=== PATIENT | female | born 1960 | race Caucasian/White ===

== ENCOUNTER → 2016-04-16 | Outpatient (CLI) | payer MEDICARE, BC, OTHER | LOC: RAD 08:30 | PROVIDERS: ATTEND Internal Medicine | DX: R06.02 Shortness of breath (principal); R07.9 Chest pain, unspecified | CPT/HCPCS: 71260; 82565 ==

== ENCOUNTER → 2016-07-04 | Outpatient (CLI) | payer MEDICARE, BC, OTHER | LOC: RAD 12:32 | PROVIDERS: ATTEND Obstetrics & Gynecology | DX: M51.36 Other intervertebral disc degeneration, lumbar region (principal) | CPT/HCPCS: 72148 ==

== ENCOUNTER → 2018-01-11 | Outpatient (CLI) | payer MEDICARE, BC, OTHER ==
--- NOTE | 2018-01-11 13:53 | RADIOLOGY REPORT (SQ) ---
EXAM DESCRIPTION: CHEST PA/LATERAL COMPLETED DATE/TIME: 01/11/2018 1:38 pm REASON FOR STUDY: PULMONARY FIBROSIS; PAIN RT POST RIBS AND SCAPULA COMPARISON: 01/17/2016 EXAM PARAMETERS: NUMBER OF VIEWS: two views TECHNIQUE: Digital Frontal and Lateral radiographic views of the chest acquired. RADIATION DOSE: NA LIMITATIONS: none FINDINGS: LUNGS AND PLEURA: There is chronic bilateral airspace disease consistent with fibrosis. N o superimposed consolidation. No effusions. MEDIASTINUM AND HILAR STRUCTURES: No masses or contour abnormalities. HEART AND VASCULAR STRUCTURES: Heart normal size. No evidence for failure. BONES: No acute findings. HARDWARE: [id number] remains in place. OTHER: No other significant finding. IMPRESSION: Pulmonary fibrosis. No acute findings. No displaced rib fractures are noted. TECHNICAL DOCUMENTATION: JOB ID: [id number] [employer]- All Rights Reserved Reading location - IP/workstation name: [email or web address]
--- NOTE | 2018-01-11 13:55 | RADIOLOGY REPORT (SQ) ---
EXAM DESCRIPTION: RIBS LEFT W/O PA CHEST COMPLETED DATE/TIME: 01/11/2018 1:39 pm REASON FOR STUDY: PAIN LEFT POST RIBS AND SCAPULA J84.10 PULMONARY FIBROSIS, UNSPECIFIED COMPARISON: None. NUMBER OF VIEWS: Three views. TECHNIQUE: Images acquired of the left ribs in the area of focal concern. LIMITATIONS: None. FINDINGS: RIBS: No acute displaced fracture. No worrisome bone lesions. LUNGS: Limited exam. No obvious pneumothorax. No pleural effusion. Interstitial changes in the vis ualized lungs, likely consistent with the patient's history of pulmonary fibrosis. OTHER: Left Xkyixi-[id number]-Kvvf catheter, stable finding. Post surgical changes at the left lung base. IMPRESSION: 1. NO ACUTE DISPLACED RIB FRACTURE. COMMENT: SITE OF TRAUMA/COMPLAINT MARKED/STAMP COMPLETED: YES. TECHNICAL DOCUMENTATION: JOB ID: [id number] [employer]- All Rights Reserved Reading location - IP/workstation name: [email or web address]
== END ==
LOC: OD 12:35
PROVIDERS: ATTEND Obstetrics & Gynecology
DX: J84.10 Pulmonary fibrosis, unspecified (principal)
CPT/HCPCS: 71046

== ENCOUNTER 2018-03-14 11:51 | Emergency (ER) | payer MEDICARE, BC, OTHER ==
--- NOTE | 2018-03-14 13:21 | EKG REPORT ---
SEVERITY:- BORDERLINE ECG - SINUS RHYTHM CONSIDER RIGHT VENTRICULAR HYPERTROPHY : Confirmed by: Hussein Rea MD 14-Mar-2018 13:20:20
--- NOTE | 2018-03-14 14:48 | ER Document Report ---
ED Medical Screen (RME) - General Chief Complaint: Shoulder Pain Stated Complaint: LEFT SHOULDER PAIN Time Seen by Provider: 03/14/18 14:44 Primary Care Provider: SADIA FORTUNE MD [Primary Care Provider] - Follow up as needed Notes: Patient is a 4-year-old female presents to the emergency department complaining of generalized left shoulder blade pain for the last 3 days. Patient states she is a patient of Dr. Fortune who placed her on the Levaquin on 02/26/2018 for presumptive pneumonia. States she went to Dr. Mcguire today for the left shoulder blade pain and he is told her to present to the emergency room. Patient has an extensive history with interstitial lung disease very embolus. Patient is on oxygen all the time. Patient states Dr. Muniz wanted to see if her pneumonia was large enough that the patient needed to be admitted to the hospital for IV antibiotics. Patient is also complaining of a generalized cough, congestion and fever. GENERAL: Alert, interacts well. No acute distress. LUNGS: rhonchi heard in all lung epperson. No respiratory distress. HEART: Regular rate and rhythm. No murmur SKIN: Warm, dry, normal turgor. No rashes or lesions noted. I have greeted and performed a rapid initial assessment of this patient. A comprehensive ED assessment and evaluation of the patient, analysis of test results and completion of the medical decision making process will be conducted by additional ED providers. TRAVEL OUTSIDE OF THE [place] IN LAST 30 DAYS: No - Related Data Allergies/Adverse Reactions: amoxicillin trihydrate [From Augmentin] Allergy (Unknown, Verified 03/14/18 11:54) Potassium Clavulanate * [From Augmentin] Allergy (Unknown, Verified 03/14/18 11:54) Sulfa (Sulfonamide Antibiotics) Allergy (Unknown, Verified 03/14/18 11:54) Past Medical History - Past Medical History Cardiac Medical History: Reports: Hx Pulmonary Embolism Pulmonary Medical History: Reports: Hx Pneumonia Denies: Hx Tuberculosis Comment Only: Hx COPD - ILD lung disease Neurological Medical History: Reports: Hx Seizures - 2005 Renal/ Medical History: Denies: Hx Peritoneal Dialysis GI Medical History: Reports: Hx Crohn's Disease Musculoskeltal Medical History: Reports Hx Arthritis - rheumatoid Skin Medical History: Reports Hx Cellulitis, Reports Hx MRSA Infectious Medical History: Reports: Hx MRSA Past Surgical History: Reports: Hx Abdominal Surgery - liver tumor removed, Hx Cholecystectomy, Hx Hysterectomy. Denies: Hx Pacemaker - Immunizations Hx Diphtheria, Pertussis, Tetanus Vaccination: Yes Physical Exam - Vital signs Vitals: Temp Pulse Resp BP Pulse Ox 99.1 F 92 20 135/90 H 95 03/14/18 12:14 03/14/18 12:14 03/14/18 12:14 03/14/18 12:14 03/14/18 12:14 Course - Vital Signs Vital signs: Temp Pulse Resp BP Pulse Ox 99.1 F 92 20 135/90 H 95 03/14/18 12:14 03/14/18 12:14 03/14/18 12:14 03/14/18 12:14 03/14/18 12:14 Doctor's Discharge - Discharge Referrals: SADIA FORTUNE MD [Primary Care Provider] - Follow up as needed
--- NOTE | 2018-03-14 15:26 | RADIOLOGY REPORT (SQ) ---
EXAM DESCRIPTION: CHEST 2 VIEWS COMPLETED DATE/TIME: 03/14/2018 2:59 pm REASON FOR STUDY: cough, pain COMPARISON: 01/11/2018 NUMBER OF VIEWS: Two view TECHNIQUE: Frontal and lateral radiographic images of the chest acquired. LIMITATIONS: None. FINDINGS: LUNGS AND PLEURA: Diffuse interstitial pattern with stable areas of honeycombing. Chronic volume loss. No effusions. MEDIASTINUM AND HILAR STRUCTURES: Stable heart size and mediastinal structures. HEART AND VASCULAR STRUCTURES: Stable appearance. SUPPORT DEVICES: Appropriate location without change. BONES: No acute findings. OTHER: No other significant finding. IMPRESSION: Pulmonary fibrosis. No acute findings. TECHNICAL DOCUMENTATION: JOB ID: [id number] [employer]- All Rights Reserved Reading location - IP/workstation name: [email or web address]
[2018-03-14 18:44] LABS: ABSOLUTE EOSINOPHILS # (AUTO) 0.1 10^3/uL (0.0-0.6); ABSOLUTE LYMPHOCYTES (AUTO) 1.5 10^3/uL (0.5-4.7); ABSOLUTE MONOCYTES (AUTO) 0.6 10^3/uL (0.1-1.4); ABSOLUTE NEUT (AUTO) 3.5 10^3/uL (1.7-8.2); BASOPHILS % (AUTO) 0.3 % (0-2); EOSINOPHILS % (AUTO) 1.9 % (0-6); HEMATOCRIT 32.7 % (36.0-47.0); HEMOGLOBIN 11.1 g/dL (12.0-15.5); LYMPHOCYTES % (AUTO) 26.3 % (13-45); MEAN CORPUSCULAR VOLUME 97 fl (80-97); MONOCYTES % (AUTO) 10.8 % (3-13); PLATELET COUNT 200 10^3/uL (150-450); RED BLOOD COUNT 3.37 10^6/uL (3.72-5.28); RED CELL DISTRIBUTION WIDTH 12.2 % (11.5-14.0); SEGMENTED NEUTROPHILS % (AUTO) 60.7 % (42-78); TOTAL CELLS COUNTED % (AUTO) 100 %; WHITE BLOOD COUNT 5.7 10^3/uL (4.0-10.5)
[2018-03-14 19:39] LABS: ALANINE AMINOTRANSFERASE 24 U/L (9-52); ALBUMIN 4.1 g/dL (3.5-5.0); ALKALINE PHOSPHATASE 46 U/L (38-126); ANION GAP 4 (5-19); ASPARTATE AMINO TRANSFERASE 30 U/L (14-36); BILIRUBIN,DIRECT 0.1 mg/dL (0.0-0.4); BILIRUBIN,TOTAL 0.2 mg/dL (0.2-1.3); BLOOD UREA NITROGEN 5 mg/dL (7-20); CALCIUM 8.1 mg/dL (8.4-10.2); CARBON DIOXIDE 37 mmol/L (22-30); CHLORIDE 95 mmol/L (98-107); GLUCOSE 117 mg/dL (75-110); POTASSIUM 3.8 mmol/L (3.6-5.0); SODIUM 135.7 mmol/L (137-145); TOTAL PROTEIN 6.3 g/dL (6.3-8.2)
[2018-03-14] MEDS ORDERED: ONDANSETRON HCL INJ/PF 4 MG/2 ML SDV IV ONE (19:40)
[2018-03-14] MEDS ORDERED: FENTANYL CITRATE INJ/PF 100 MCG/2 ML AMPUL IV ONE (19:40)
[2018-03-14] MEDS ORDERED: DOXYCYCLINE HYCLATE 100 MG TABLET PO ONE (19:57)
[2018-03-14] MEDS ORDERED: NORMAL SALINE 500 ML IV ONE (19:58)
[2018-03-14] MEDS ORDERED: CYCLOBENZAPRINE HCL 10 MG TABLET PO ONE (21:23)
[2018-03-14 21:24] LABS: A TYPE INFLUENZA AG NEGATIVE (NEGATIVE); B INFLUENZA AG NEGATIVE (NEGATIVE)
[2018-03-14 22:08] VITALS: BP 98/68
--- NOTE | 2018-03-15 03:11 | ER Document Report ---
Entered by VIVIEN CARTER SCRIBE 03/14/182005 Acting as scribe for:DEBBIE KATZ DO ED Respiratory Problem - General Chief Complaint: Shoulder Pain Stated Complaint: LEFT SHOULDER PAIN Time Seen by Provider: 03/14/18 14:44 Primary Care Provider: SADIA FORTUNE MD [Primary Care Provider] - Follow up tomorrow Information source: Patient Notes: 58-year-old female that was sent in by her primary care physician, Dr. Fortune, with complaints of increasing shortness of breath and left shoulder blade pain. Patient was started on Levaquin for possible pneumonia. Patient states she has taken Levaquin several times in the past. Patient states she was told by her doctor that her antibiotic might need to be switched. Patient's left shoulder pain is worsened with with movement of the left shoulder. TRAVEL OUTSIDE OF THE [place] IN LAST 30 DAYS: No - Related Data Allergies/Adverse Reactions: amoxicillin trihydrate [From Augmentin] Allergy (Unknown, Verified 03/14/18 11:54) Potassium Clavulanate * [From Augmentin] Allergy (Unknown, Verified 03/14/18 11:54) Sulfa (Sulfonamide Antibiotics) Allergy (Unknown, Verified 03/14/18 11:54) Past Medical History - General Information source: Patient - Social History Smoking Status: Former Smoker Cigarette use (# per day): No Frequency of alcohol use: None Drug Abuse: None Family History: Arthritis, CAD, DM, Hyperlipidemia, Hypertension, Malignancy Patient has suicidal ideation: No Patient has homicidal ideation: No - Past Medical History Cardiac Medical History: Reports: Hx Pulmonary Embolism, Other Pulmonary Medical History: Reports: Hx Pneumonia, Other - pulmonary fibrosis Comment Only: Hx COPD - ILD lung disease Neurological Medical History: Reports: Hx Seizures - 2004 Renal/ Medical History: Denies: None, Hx Ectopic , Hx End Stage Renal Disease, Hx Hemodialysis, Hx Hydrocele, Hx Kidney Stones, Hx Ovarian Cysts, Hx Peritoneal Dialysis, Hx Pelvic Inflammatory Disease, Hx Renal Insufficiency, Hx Varicocele, Other GI Medical History: Reports: Hx Crohn's Disease Musculoskeletal Medical History: Reports Hx Arthritis - rheumatoid Skin Medical History: Reports Hx Cellulitis, Reports Hx MRSA Infectious Medical History: Reports: Hx MRSA Past Surgical History: Reports: Hx Abdominal Surgery - liver tumor removed, Hx Cholecystectomy, Hx Hysterectomy - Immunizations Hx Diphtheria, Pertussis, Tetanus Vaccination: Yes Hx Pneumococcal Vaccination: 02/16/04 Review of Systems - Review of Systems Constitutional: No symptoms reported EENT: No symptoms reported Cardiovascular: No symptoms reported Respiratory: See HPI, Short of breath Gastrointestinal: No symptoms reported Genitourinary: No symptoms reported Female Genitourinary: No symptoms reported Musculoskeletal: See HPI, Other - left shoulder blade pain Skin: No symptoms reported Hematologic/Lymphatic: No symptoms reported Neurological/Psychological: No symptoms reported -: Yes All other systems reviewed and negative Physical Exam - Vital signs Vitals: Temp Pulse Resp BP Pulse Ox 99.1 F 92 20 135/90 H 95 03/14/18 12:14 03/14/18 12:14 03/14/18 12:14 03/14/18 12:14 03/14/18 12:14 Interpretation: Normal - General General appearance: Appears well, Alert - HEENT Head: Normocephalic, Atraumatic Eyes: Normal Pupils: PERRL Nasal: Other - nc at 3L - Respiratory Respiratory status: No respiratory distress Chest status: Nontender Breath sounds: Normal Chest palpation: Normal - Cardiovascular Rhythm: Regular Heart sounds: Normal auscultation Murmur: No - Abdominal Inspection: Normal Distension: No distension Bowel sounds: Normal Tenderness: Nontender Organomegaly: No organomegaly - Back Back: Normal, Tender - L medical scapula TTP - Extremities General upper extremity: Normal inspection, Nontender, Normal color, Normal ROM, Normal temperature General lower extremity: Normal inspection, Nontender, Normal color, Normal ROM, Normal temperature, Normal weight bearing. No: Reddy's sign - Neurological Neuro grossly intact: Yes Cognition: Normal Orientation: AAOx4 Julio Coma Scale Eye Opening: Spontaneous Chancellor Coma Scale Verbal: Oriented Chancellor Coma Scale Motor: Obeys Commands Chancellor Coma Scale Total: 15 Speech: Normal Motor strength normal: LUE, RUE, LLE, RLE Sensory: Normal - Psychological Associated symptoms: Normal affect, Normal mood - Skin Skin Temperature: Warm Skin Moisture: Dry Skin Color: Normal Course - Re-evaluation Re-evalutation: Patient sent in by her doctor's office for cough and left scapula pain. No acute findings on blood work including troponin negative x2. Patient is on her baseline 3 L of oxygen. Difficulty breathing. No evidence for pneumonia or infection. Patient has had complete relief of symptoms after Flexeril. She will be discharged home. I am going to switch her Levaquin to doxycycline as I am concerned that this may be a tendinitis related to the Levaquin. Patient is agreeable to this plan. Of note, d-dimer is negative and patient has had many CTs in her lifetime, would prefer not to have another one tonight. Return immediately if any worsening or concerning symptoms. First dose of doxycycline given tonight. Stable for discharge. - Vital Signs Vital signs: Temp Pulse Resp BP Pulse Ox 97.7 F 92 13 98/68 L 100 03/14/18 22:15 03/14/18 12:14 03/14/18 22:15 03/14/18 22:01 03/14/18 22:15 - Laboratory Result Diagrams: 03/14/18 18:30 03/14/18 18:30 Laboratory results interpreted by me: 03/14/18 03/14/18 18:30 18:30 RBC 3.37 L Hgb 11.1 L Hct 32.7 L Sodium 135.7 L Chloride 95 L Carbon Dioxide 37 H Anion Gap 4 L BUN 5 L Creatinine 0.45 L Glucose 117 H Calcium 8.1 L - Diagnostic Test Radiology reviewed: Reports reviewed Discharge - Discharge Clinical Impression: Pain of left scapula Condition: Stable Disposition: HOME, SELF-CARE Instructions: Tendonitis ([facility]) Additional Instructions: STOP TAKING LEVAQUIN. Start Doxycycline instead tomorrow morning. Please call your doctor tomorrow. Prescriptions: Doxycycline Hyclate 100 mg PO BID #14 capsule Referrals: SADIA FORTUNE MD [Primary Care Provider] - Follow up tomorrow Scribe Attestation: 03/15/18 03:11 I personally performed the services described in the documentation, reviewed and edited the documentation which was dictated to the scribe in my presence, and it accurately records my words and actions. I personally performed the services described in the documentation, reviewed and edited the documentation which was dictated to the scribe in my presence, and it accurately records my words and actions.
== END 2018-03-14 22:33 | disposition home or self-care (01) ==
LOC: ER 11:51
DX: M25.512 Pain in left shoulder (principal); J84.112 Idiopathic pulmonary fibrosis; R06.02 Shortness of breath; R05 Cough; Z87.01 Personal history of pneumonia (recurrent); Z88.0 Allergy status to penicillin; Z88.2 Allergy status to sulfonamides; Z87.891 Personal history of nicotine dependence; Z86.711 Personal history of pulmonary embolism
CPT/HCPCS: 93005; 36591; 99284; 96361; 96374; 96375; 36415; 85025; 80053; 84484; 85379; 87804; 71046; 93010; A9270 ×2; J3010; J2405; J7040

== ENCOUNTER 2020-02-08 10:55 | Outpatient (CLI) | payer MEDICARE, BC, OTHER ==
[~2020-02-08 10:55] MED LIST: MAGNESIUM SULFATE 4 GM/D5W 100 ML IV PRN; NORMAL SALINE 250 ML IV PRN
[2020-02-08 11:31] VITALS: BP 112/61
== END 2020-02-08 15:25 | disposition home or self-care (01) ==
LOC: II 10:55 → 5TH 10:57 → II 15:25
PROVIDERS: ATTEND Internal Medicine
DX: E83.42 Hypomagnesemia (principal)
CPT/HCPCS: 96365; 96366; J3475; J1642

== ENCOUNTER 2020-02-19 14:37 | Emergency (ER) | payer MEDICARE, BC, OTHER ==
--- NOTE | 2020-02-19 16:21 | ER Document Report ---
ED Medical Screen (RME) - General Chief Complaint: Shortness Of Breath Stated Complaint: COUGH,CONGESTION,FEVER Time Seen by Provider: 02/19/20 16:09 Primary Care Provider: SADIA FORTUNE MD [Primary Care Provider] - Follow up as needed Mode of Arrival: Ambulatory Information source: Patient TRAVEL OUTSIDE OF THE [place] IN LAST 30 DAYS: No - HPI Patient complains to provider of: Fever, shortness of breath, Covid exposure Notes: 02/19/20 16:20 Patient here with fever, body aches, shortness of breath for the last 2 days. Patient states she had a lung transplant in August. She was exposed to a neighbor who tested positive for Covid on . She states she is currently on anticoagulation for pulmonary embolism that was diagnosed a few weeks ago. Exam: Nontoxic, no distress. Lungs clear and equal throughout. Mild tachycardia. Skin normal. An initial examination was made on the patient as part of the triage process, and it was determined a more comprehensive evaluation was necessary. Initial labs were ordered and patient was transferred to another provider in the ED who assumed care and finished evaluation and plan. - Related Data Allergies/Adverse Reactions: amoxicillin trihydrate [From Augmentin] Allergy (Unknown, Verified 03/14/18 1 1:54) Potassium Clavulanate * [From Augmentin] Allergy (Unknown, Verified 03/14/18 11:54) Sulfa (Sulfonamide Antibiotics) Allergy (Unknown, Verified 03/14/18 11:54) Past Medical History - Social History Chew tobacco use (# tins/day): No Frequency of alcohol use: None Drug Abuse: None - Past Medical History Cardiac Medical History: Reports: Hx Pulmonary Embolism Pulmonary Medical History: Reports: Hx Pneumonia Denies: Hx Tuberculosis Comment Only: Hx COPD - ILD lung disease Neurological Medical History: Reports: Hx Seizures - 2005 Renal/ Medical History: Denies: Hx Ectopic , Hx End Stage Renal Disease, Hx Hemodialysis, Hx Hydrocele, Hx Kidney Stones, Hx Ovarian Cysts, Hx Peritoneal Dialysis, Hx Pelvic Inflammatory Disease, Hx Renal Insufficiency, Hx Varicocele GI Medical History: Reports: Hx Crohn's Disease Musculoskeltal Medical History: Reports Hx Arthritis - rheumatoid Skin Medical History: Reports Hx Cellulitis, Reports Hx MRSA Infectious Medical History: Reports: Hx MRSA Past Surgical History: Reports: Hx Abdominal Surgery - liver tumor removed, Hx Cholecystectomy, Hx Hysterectomy. Denies: Hx Pacemaker - Immunizations Hx Diphtheria, Pertussis, Tetanus Vaccination: Yes Physical Exam - Vital signs Vitals: Temp Pulse Resp BP Pulse Ox 98.6 F 108 H 18 163/96 H 93 02/19/20 15:08 02/19/20 15:08 02/19/20 15:08 02/19/20 15:08 02/19/20 15:08 Course - Vital Signs Vital signs: Temp Pulse Resp BP Pulse Ox 98.6 F 108 H 18 163/96 H 93 02/19/20 15:08 02/19/20 15:08 02/19/20 15:08 02/19/20 15:08 02/19/20 15:08 Doctor's Discharge - Discharge Referrals: SADIA FORTUNE MD [Primary Care Provider] - Follow up as needed
[2020-02-19] MEDS ORDERED: ACETAMINOPHEN 325 MG TABLET PO ONE (21:53)
[2020-02-19 22:14] LABS: HEMATOCRIT 29.9 % (36.0-47.0); HEMOGLOBIN 10.6 g/dL (12.0-15.5); MEAN CORPUSCULAR HEMOGLOBIN 37.1 pg (27.0-33.4); MEAN CORPUSCULAR HGB CONC 35.5 g/dL (32.0-36.0); MEAN CORPUSCULAR VOLUME 105 fl (80-97); RED BLOOD COUNT 2.86 10^6/uL (3.72-5.28); RED CELL DISTRIBUTION WIDTH 17.3 % (11.5-14.0); WHITE BLOOD COUNT 2.3 10^3/uL (4.0-10.5)
[2020-02-19 22:20] LABS: ALKALINE PHOSPHATASE 80 U/L (38-126); ANION GAP 8 (5-19); ASPARTATE AMINO TRANSFERASE 33 U/L (14-36); BILIRUBIN,DIRECT 0.2 mg/dL (0.0-0.4); BILIRUBIN,TOTAL 0.4 mg/dL (0.2-1.3); BLOOD UREA NITROGEN 27 mg/dL (7-20); CARBON DIOXIDE 33 mmol/L (22-30); CHLORIDE 83 mmol/L (98-107); GLUCOSE 131 mg/dL (75-110); POTASSIUM 4.5 mmol/L (3.6-5.0); TOTAL PROTEIN 6.7 g/dL (6.3-8.2)
[2020-02-19 22:22] LABS: INTERNATIONAL RATION (INR) 1.14; PROTHROMBIN TIME 14.8 SEC (11.4-15.4)
[2020-02-19 22:23] LABS: PARTIAL THROMBOPLASTIN TIME 36.5 SEC (23.5-35.8)
[2020-02-19 22:31] LABS: TROPONIN I 0.013 ng/mL
[2020-02-19 22:38] LABS: ABSOLUTE LYMPHOCYTES# (MANUAL) 0.3 10^3/uL (0.5-4.7); ABSOLUTE MONOCYTES # (MANUAL) 0.8 10^3/uL (0.1-1.4); BAND NEUTROPHILS % (MANUAL) 7 % (3-5); BASOPHILS % (MANUAL) 0 % (0-2); EOSINOPHILS % (MANUAL) 0 % (0-6); LYMPHOCYTES % (MANUAL) 15 % (13-45); METAMYELOCYTES % (MANUAL) 1 % (0-1); MONOCYTES % (MANUAL) 33 % (3-13); SEGMENTED NEUTROPHILS % (MAN) 44 % (42-78); TOTAL CELLS COUNTED 100
[2020-02-19 22:40] LABS: ANISOCYTOSIS 1+; POLYCHROMASIA SLIGHT; TOXIC GRANULATION SLIGHT; TOXIC VACUOLATION PRESENT
--- NOTE | 2020-02-19 22:40 | ER Document Report ---
Entered by VIVIEN CARTER SCRIBE 02/19/20 [id number] Acting as scribe for:MIGUE VILLEDA, DO ED General - General Chief Complaint: Shortness Of Breath Stated Complaint: COUGH,CONGESTION,FEVER Time Seen by Provider: 02/19/20 16:09 Primary Care Provider: SADIA FORTUNE MD [Primary Care Provider] - Follow up as needed Mode of Arrival: Ambulatory Information source: Patient Notes: This 60-year-old female patient presents to the emergency department today with complaints of fevers and chills since yesterday. Patient's temperature got as high as 101.8 today prior to arrival and she took tylenol. She is status post bilateral lung transplant from interstitial lung disease. Transplant was done on August 20 2019 at [facility] and she is followed by the transplant team there. Patient had a pulmonary embolism in November and she has been on Eliquis ever since. She does mention that she has been around her neighbor who tested positive for Covid around [place]. TRAVEL OUTSIDE OF THE [place] IN LAST 30 DAYS: No - Related Data Allergies/Adverse Reactions: amoxicillin trihydrate [From Augmentin] Allergy (Unknown, Verified 03/14/18 11:54) Potassium Clavulanate * [From Augmentin] Allergy (Unknown, Verified 03/14/18 11:54) Sulfa (Sulfonamide Antibiotics) Allergy (Unknown, Verified 03/14/18 11:54) Past Medical History - General Information source: Patient - Social History Smoking Status: Former Smoker Cigarette use (# per day): No Chew tobacco use (# tins/day): No Frequency of alcohol use: None Drug Abuse: None Lives with: Family Family History: Arthritis, CAD, DM, Hyperlipidemia, Hypertension, Malignancy - Past Medical History Cardiac Medical History: Reports: Hx Pulmonary Embolism Pulmonary Medical History: Reports: Hx COPD - ILD lung disease, Hx Pneumonia Neurological Medical History: Reports: Hx Seizures - 2005 GI Medical History: Reports: Hx Crohn's Disease Musculoskeletal Medical History: Reports Hx Arthritis - rheumatoid Skin Medical History: Reports Hx Cellulitis, Reports Hx MRSA Infectious Medical History: Reports: Hx MRSA Past Surgical History: Reports: Hx Abdominal Surgery - liver tumor removed, Hx Cholecystectomy, Hx Hysterectomy - Immunizations Hx Diphtheria, Pertussis, Tetanus Vaccination: Yes Hx Pneumococcal Vaccination: 02/16/04 Review of Systems - Review of Systems Constitutional: See HPI, Chills, Fever EENT: No symptoms reported Cardiovascular: No symptoms reported Respiratory: No symptoms reported Gastrointestinal: No symptoms reported Genitourinary: No symptoms reported Female Genitourinary: No symptoms reported Musculoskeletal: No symptoms reported Skin: No symptoms reported Hematologic/Lymphatic: No symptoms reported Neurological/Psychological: No symptoms reported -: Yes All other systems reviewed and negative Physical Exam - Vital signs Vitals: Temp Pulse Resp BP Pulse Ox 98.6 F 108 H 18 163/96 H 93 02/19/20 15:08 02/19/20 15:08 02/19/20 15:08 02/19/20 15:08 02/19/20 15:08 - Notes Notes: Physical Exam: General: Alert, frail and chronically ill. HEENT: Normocephalic. Atraumatic. PERRL. Extraocular movements intact. Oropharynx clear. Neck: Supple. Non-tender. Respiratory: No respiratory distress. Diminished at the bases bilaterally. Rhonchi bilaterally. Cardiovascular: Regular rate and rhythm. Abdominal: Obese. Non-tender. No distension. Normal Bowel Sounds. Back: No gross abnormalities. Extremities: Moves all four extremities. Upper extremities: Normal inspection. Normal ROM. Lower extremities: Normal inspection. No edema. Normal ROM. Neurological: Normal cognition. AAOx4. Normal speech. Psychological: Normal affect. Normal Mood. Skin: Warm. Dry. Normal color. Course - Re-evaluation Re-evalutation: 02/20/20 02:36 MDM Unfortunate 60 year old female with Covid pneumonia. [facility] transplant pt. On their list but no beds. Discussed with Dr. Loren Veliz and she has graciously accepted the pt - Int Med. and Transplant team is aware - Dr. Gilliland and they defer to IM for Covid cases. No specific reccomendations for care at this time. I discussed this with pt and daughter and and they expressed understanding of current situation. Will continue to monitor in the ED here. - Vital Signs Vital signs: Temp Pulse Resp BP Pulse Ox 102.4 F H 108 H 19 163/96 H 92 02/19/20 21:49 02/19/20 15:08 02/19/20 21:00 02/19/20 15:08 02/19/20 21:00 - Laboratory Results Result Diagrams: 02/19/20 21:46 02/19/20 21:46 Laboratory Results Interpreted: 02/19/20 02/19/20 02/19/20 20:40 21:46 21:46 WBC 2.3 L RBC 2.86 L Hgb 10.6 L Hct 29.9 L MCV 105 H MCH 37.1 H RDW 17.3 H Band Neutrophils % 7 H Monocytes % (Manual) 33 H Abs Neuts (Manual) 1.2 L Abs Lymphs (Manual) 0.3 L APTT 36.5 H Sodium Chloride Carbon Dioxide BUN Est GFR ( Amer) Est GFR (MDRD) Non-Af Glucose C-Reactive Protein NT-Pro-B Natriuret Pep SARS-CoV-2 (PCR) DETECTED H 02/19/20 02/19/20 02/19/20 21:46 21:46 21:46 WBC RBC Hgb Hct MCV MCH RDW Band Neutrophils % Monocytes % (Manual) Abs Neuts (Manual) Abs Lymphs (Manual) APTT Sodium 123.6 L Chloride 83 L Carbon Dioxide 33 H BUN 27 H Est GFR ( Amer) 58 L Est GFR (MDRD) Non-Af 48 L Glucose 131 H C-Reactive Protein 183.2 H NT-Pro-B Natriuret Pep 837 H SARS-CoV-2 (PCR) Critical Laboratory Results Reviewed: No Critical Results - Radiology Results Critical Radiology Results Reviewed: No Critical Results - EKG Interpretation by Me EKG shows normal: Sinus rhythm Rate: Tachycardia Rhythm: NSR - Sinus Tachy Nl [place] [address] elevation or depression my interpretation. Critical Care Note - Critical Care Note Total time excluding time spent on procedures (mins): 30 Discharge - Discharge Clinical Impression: Pneumonia due to COVID-19 virus, Lung transplant recipient Anemia Qualifiers: Anemia type: other cause Other causes of anemia: other cause, not classified Qualified Code(s): D64.89 - Other specified anemias Condition: Serious Disposition: [place] Referrals: SADIA FORTUNE MD [Primary Care Provider] - Follow up as needed I personally performed the services described in the documentation, reviewed and edited the documentation which was dictated to the scribe in my presence, and it accurately records my words and actions.
[2020-02-19 22:41] LABS: PLATELET CLUMPS PRESENT; PLATELET COMMENT ADEQUATE; PLATELET COUNT 359 10^3/uL (150-450)
--- NOTE | 2020-02-19 23:38 | RADIOLOGY REPORT (SQ) ---
EXAM DESCRIPTION: Site: CHEST SINGLE VIEW RP: XR CHEST 1 VIEW CLINICAL HISTORY: 60 years Female; htn; COMPARISON: 03/14/2018 FINDINGS: Lungs: Lungs are clear, with no focal infiltrate, pneumothorax, or pleural effusion. Mediastinum: Numerous surgical clips are noted. Left IJ port is in place, tip in the SVC. No mediastinal shift. Bones: Bony structures are unremarkable. Right upper quadrant surgical clips are noted. IMPRESSION: 1. No acute infiltrates 2. Port-A-Cath
--- NOTE | 2020-02-20 00:05 | RADIOLOGY REPORT (SQ) ---
EXAM DESCRIPTION: CTA CHEST RadLex: CT CHEST ANGIOGRAPHY WITHOUT THEN WITH IV CONTRAST CLINICAL HISTORY: 60 years Female; Covid exposure, lung transplant, current PE; TECHNIQUE: CT angiogram of the chest using intravenous contrast. MIP reconstructions were performed. All CT scans at this facility use dose modulation, iterative reconstruction, and/or weight based dosing when appropriate to reduce radiation dose to as low as reasonably achievable. COMPARISON: CT 04/16/2016 FINDINGS: Pulmonary arteries: No filling defects in the central pulmonary arteries. Lungs: There are several groundglass densities in the right upper lobe and right lower lobe, suspicious for foci of acute pneumonia. No pneumothorax or pleural effusion. Mediastinum: Mediastinal surgical clips are noted, consistent with interval lung transplant.. Left IJ port is in place. No pericardial effusion. No enlarged mediastinal lymph nodes. No thoracic aortic aneurysm or dissection. Bones:No acute bone findings. IMPRESSION: 1. No CT evidence for pulmonary embolism. 2. Several mild groundglass densities in the right lung, suspicious for COVID-19 pneumonia, in the setting of COVID exposure.
[2020-02-20] MEDS ORDERED: RINGERS SOLUTION,LACTATED 1,000 ML IV ONE (02:00)
[2020-02-20] MEDS ORDERED: ONDANSETRON HCL INJ/PF 4 MG/2 ML SDV IV ONE (02:01)
[2020-02-20] MEDS ORDERED: FENTANYL CITRATE INJ/PF 100 MCG/2 ML AMPUL IV ONE (02:01)
[2020-02-20] MEDS ORDERED: MEROPENEM 1 GM VIAL IV ONE (02:11)
--- NOTE | 2020-02-20 10:32 | EKG REPORT ---
SEVERITY:- ABNORMAL ECG - SINUS TACHYCARDIA LEFT ATRIAL ABNORMALITY BORDERLINE INFERIOR Q WAVES NONSPECIFIC T ABNORMALITIES, LATERAL LEADS : Confirmed by: Balbir Palafox 20-Feb-2020 10:31:48
[2020-02-20] MEDS ORDERED: RINGERS SOLUTION,LACTATED 500 ML IV ONE (14:35)
--- NOTE | 2020-02-20 14:38 | ER Document Report ---
Doctor's Note Notes: 02/20/20 14:36 Patient is currently awaiting transport to [facility]. She is a 60-year-old female with a past medical history of lung transplant at [facility] in August for interstitial lung disease. Patient states she has felt short of breath and cough for 2 days. She was diagnosed with Covid. Patient states she currently still has chest tightness from coughing. She denies any headaches. No diarrhea. No abdominal pain. No fevers or chills. Patient is drinking fluids. On exam, patient is awake and alert. She has bilateral coarse lung sounds. Heart is regular. She is mildly hypotensive at 89 systolic. Abdomen is soft. Patient will be given another small fluid bolus. She states she normally has low blood pressure. I will attempt to contact [facility] to relate to them her series of low blood pressures. I discussed with the [facility] hospitalist, Dr. Cotto, who recommended that we give her dexamethasone and if her kidney function can tolerate it to give her Remdesivir. She also recommended we consider stress dose steroids as she is on chronic steroid therapy if her blood pressure continues to be low. I repeated blood work. Repeat blood work returned with a low sodium and high potassium. At this point, I did discuss with the hospitalist for consult as [facility] does not have a bed and does not know when a bed will be available. I discussed with Dr. Berger who will be consulted on the patient. He recommended that I put her on fluid restrictions. He also recommended that I discuss with nephrology. I talked to Dr. Horner from nephrology who recommended we give her 50 mL bolus of 3% normal saline and recheck her BMP. I relayed this to nursing staff. She stated that we can just watch the potassium and obtain an EKG as that can be from the lactated Ringer's. 02/20/20 17:57 Patient's repeat EKG shows sinus rhythm at a rate of 98. QTc 435. She does have some borderline ST elevation in the inferior leads without any reciprocal changes. I will obtain a troponin. Patient is denying any chest pain. She just states she feels sore from coughing. I have formally consulted hospitalist and nephrology. 02/20/20 19:58 CRITICAL CARE ED: Upon my evaluation, this patient had a high probability of imminent or life- threatening deterioration due to low blood pressure and hyponatremia, which required my direct attention, intervention, and personal management. I have personally provided 65 minutes of critical care time exclusive of time. Time includes review of laboratory data, radiology results, discussion with consultants, and monitoring for potential decompensation. Interventions were performed as documented above. 02/22/20 07:43 02/23/20 07:12
[2020-02-20] MEDS ORDERED: DEXAMETHASONE SOD PHOS INJ 10 MG/1 ML VIAL IV ONE (15:40)
[2020-02-20 15:47] LABS: HEMATOCRIT 26.2 % (36.0-47.0); HEMOGLOBIN 9.5 g/dL (12.0-15.5); MEAN CORPUSCULAR HEMOGLOBIN 37.9 pg (27.0-33.4); MEAN CORPUSCULAR HGB CONC 36.3 g/dL (32.0-36.0); MEAN CORPUSCULAR VOLUME 105 fl (80-97); PLATELET COUNT 269 10^3/uL (150-450); RED BLOOD COUNT 2.51 10^6/uL (3.72-5.28); RED CELL DISTRIBUTION WIDTH 17.7 % (11.5-14.0)
[2020-02-20 16:09] LABS: ALBUMIN 2.6 g/dL (3.5-5.0); ALKALINE PHOSPHATASE 45 U/L (38-126); ASPARTATE AMINO TRANSFERASE 27 U/L (14-36); BILIRUBIN,DIRECT 0.3 mg/dL (0.0-0.4); BILIRUBIN,TOTAL 0.5 mg/dL (0.2-1.3); BLOOD UREA NITROGEN 34 mg/dL (7-20); GLUCOSE 88 mg/dL (75-110); TOTAL PROTEIN 4.9 g/dL (6.3-8.2)
[2020-02-20 16:13] LABS: ABSOLUTE LYMPHOCYTES# (MANUAL) 0.2 10^3/uL (0.5-4.7); ABSOLUTE MONOCYTES # (MANUAL) 0.3 10^3/uL (0.1-1.4); BAND NEUTROPHILS % (MANUAL) 20 % (3-5); BASOPHILS % (MANUAL) 0 % (0-2); EOSINOPHILS % (MANUAL) 2 % (0-6); LYMPHOCYTES % (MANUAL) 10 % (13-45); MONOCYTES % (MANUAL) 16 % (3-13); SEGMENTED NEUTROPHILS % (MAN) 36 % (42-78); TOTAL CELLS COUNTED 50
[2020-02-20 16:14] LABS: CARBON DIOXIDE 32 mmol/L (22-30); CHLORIDE 85 mmol/L (98-107)
[2020-02-20 16:18] LABS: ANISOCYTOSIS 1+; OVALOCYTES SLIGHT; PLATELET COMMENT ADEQUATE; POIKILOCYTOSIS SLIGHT; POLYCHROMASIA SLIGHT; TEAR DROP CELLS SLIGHT
[2020-02-20 16:21] LABS: METAMYELOCYTES % (MANUAL) 14 % (0-1)
[2020-02-20 16:22] LABS: POTASSIUM 5.7 mmol/L (3.6-5.0)
[2020-02-20 16:24] LABS: ANION GAP 2 (5-19)
[2020-02-20] MEDS ORDERED: SODIUM CHLORIDE 3% 50 ML IV ONE (17:56)
[2020-02-20] MEDS ORDERED: IVERMECTIN 3 MG TABLET PO ONE ×2 (18:33→20:00)
[2020-02-20] MEDS ORDERED: DEXAMETHASONE SOD PHOSPHATE INJ 4 MG/1 ML VIAL IV SCH (18:45)
--- NOTE | 2020-02-20 18:54 | PDOC CONSULTATION ---
Consultation Consult Date: 02/20/20 Attending physician:: STACEY TIRADO Provider Consulted: LAMBERT ARAGON Consult reason:: covid, hyponatremia History of Present Illness Admission Date/PCP: SADIA FORTUNE MD Patient complains of: SOB, N/V History of Present Illness: TRESSA LOPEZ is a 60 year old female with history of interstitial lung disease status post lung transplantation [08/2020], rheumatoid arthritis, Crohn's disease, anemia, chronic hyponatremia, who presents to the hospital with complaints of shortness of breath, nausea vomiting and fever. She presented yesterday. She has been having symptoms for about 2 days. She was diagnosed with COVID-19 pneumonia in the ER. CTA shows no evidence of pulmonary embolism. She is currently on the wait list to be transferred to [place]. However her sodium has been noted to be going down now below 120. Patient states that she has been told that she has low sodium levels in the 120s for the past several weeks. She does not know the etiology. She has been quite nauseous at unable to tolerate much food or fluids. So far today she has received lactated Ringer's 1.5 L. She also complains of pleuritic chest pain is precipitated by coughing. Past Medical History Cardiac Medical History: Reports: Pulmonary Embolism Pulmonary Medical History: Reports: Pneumonia, Other - Interstitial lung disease Denies: Tuberculosis Neurological Medical History: Reports: Seizures - 2005 Renal/ Medical History: Denies: End Stage Renal Disease GI Medical History: Reports: Crohn's Disease Musculoskeltal Medical History: Reports: Arthritis - rheumatoid Infectious Medical History: Reports: Methicillin-Resistant Staph Aureus Past Surgical History Past Surgical History: Reports: Cholecystectomy, Hysterectomy Denies: Pacemaker Social History Information Source: Patient Lives with: Family Smoking Status: Former Smoker Electronic Cigarette use?: No Hx Recreational Drug Use: No Hx Prescription Drug Abuse: No - Advance Directive Resuscitation Status: Full Code Family History Family History: Arthritis, CAD, DM, Hyperlipidemia, Hypertension, Malignancy Parental Family History Reviewed: Yes Children Family History Reviewed: Yes Sibling(s) Family History Reviewed.: Yes Medication/Allergy Allergies/Adverse Reactions: amoxicillin trihydrate [From Augmentin] Allergy (Unknown, Verified 03/14/18 11:54) Potassium Clavulanate * [From Augmentin] Allergy (Unknown, Verified 03/14/18 11:54) Sulfa (Sulfonamide Antibiotics) Allergy (Unknown, Verified 03/14/18 11:54) Review of Systems Constitutional: PRESENT: fatigue, fever(s) Eyes: ABSENT: visual disturbances Ears: ABSENT: hearing changes Nose, Mouth, and Throat: PRESENT: headache(s) Cardiovascular: PRESENT: chest pain Respiratory: PRESENT: cough, dyspnea, sputum Gastrointestinal: PRESENT: nausea. ABSENT: vomiting Neurological: ABSENT: confusion, dizziness Psychiatric: ABSENT: anxiety Endocrine: ABSENT: polyuria Hematologic/Lymphatic: ABSENT: easy bleeding Allergic/Immunologic: ABSENT: seasonal rhinorrhea Physical Exam Vital Signs: Temp Pulse Resp BP Pulse Ox 97.9 F 108 H 17 102/58 L 94 02/20/20 16:27 02/19/20 15:08 02/20/20 18:00 02/20/20 17:24 02/20/20 18:00 Intake & Output 02/19/20 02/20/20 02/21/20 06:59 06:59 06:59 Intake Total 1500 Balance 1500 Weight 50.5 kg General appearance: PRESENT: no acute distress, cooperative, other - Appears very fatigued Head exam: PRESENT: normocephalic Mouth exam: PRESENT: neck supple Neck exam: ABSENT: JVD Respiratory exam: PRESENT: clear to auscultation jos, symmetrical, unlabored. ABSENT: tachypnea, wheezes Cardiovascular exam: PRESENT: RRR, +S1, +S2. ABSENT: tachycardia GI/Abdominal exam: PRESENT: soft. ABSENT: rebound, rigid, tenderness Extremities exam: ABSENT: pedal edema Neurological exam: PRESENT: alert, awake, oriented to person, oriented to place, oriented to time, oriented to situation Psychiatric exam: ABSENT: agitated, anxious Focused psych exam: ABSENT: pressured speech Skin exam: ABSENT: jaundice Results Laboratory Results: 02/20/20 15:28 02/20/20 15:28 02/19/20 02/19/20 02/19/20 21:46 21:46 21:46 WBC 2.3 L RBC 2.86 L Hgb 10.6 L Hct 29.9 L MCV 105 H MCH 37.1 H MCHC 35.5 RDW 17.3 H Plt Count 359 Seg Neutrophils % Not Reportable Sodium 123.6 L Potassium 4.5 Chloride 83 L Carbon Dioxide 33 H Anion Gap 8 BUN 27 H Creatinine 1.15 Est GFR ( Amer) 58 L Glucose 131 H Lactic Acid Calcium 9.0 Total Bilirubin 0.4 AST 33 Alkaline Phosphatase 80 C-Reactive Protein 183.2 H Total Protein 6.7 Albumin 4.0 02/20/20 02/20/20 02/20/20 00:32 15:28 15:28 WBC 2.0 L RBC 2.51 L Hgb 9.5 L Hct 26.2 L MCV 105 H MCH 37.9 H MCHC 36.3 H RDW 17.7 H Plt Count 269 Seg Neutrophils % Not Reportable Sodium 118.9 L* Potassium 5.7 H D Chloride 85 L Carbon Dioxide 32 H Anion Gap 2 L BUN 34 H Creatinine 1.75 H Est GFR ( Amer) 36 L Glucose 88 Lactic Acid 1.1 Calcium 8.0 L Total Bilirubin 0.5 AST 27 Alkaline Phosphatase 45 C-Reactive Protein Total Protein 4.9 L Albumin 2.6 L 02/20/20 15:28 WBC RBC Hgb Hct MCV MCH MCHC RDW Plt Count Seg Neutrophils % Sodium Potassium Chloride Carbon Dioxide Anion Gap BUN Creatinine Est GFR ( Amer) Glucose Lactic Acid 1.0 Calcium Total Bilirubin AST Alkaline Phosphatase C-Reactive Protein Total Protein Albumin 02/19/20 21:46 Troponin I 0.013 NT-Pro-B Natriuret Pep 837 H Impressions: Chest/Abdomen CTA 02/19/20 16:17 IMPRESSION: 1. No CT evidence for pulmonary embolism. 2. Several mild groundglass densities in the right lung, suspicious for COVID-19 pneumonia, in the setting of COVID exposure. Chest X-Ray 02/19/20 22:39 IMPRESSION: 1. No acute infiltrates 2. Port-A-Cath Assessment and Plan - Diagnosis (1) Pneumonia due to COVID-19 virus Is this a current diagnosis for this admission?: Yes Plan: CTA shows no evidence of pulmonary embolism. D-dimer is low. Continue dexamethasone 6 mg daily given severe disease. Would like to start remdesivir but notably remdesivir can facilitate hyperkalemia so best to defer until potassium improves. In the meantime we can try a dose of ivermectin. No interactions with her home meds on my review Vitamin, zinc supplements Antiemetics, guaifenesin Awaiting transfer to [place] (2) Acute respiratory failure with hypoxia Is this a current diagnosis for this admission?: Yes Plan: Secondary to COVID-19 pneumonia. Currently on 4 L. We will try to keep sat uration above 90%. (3) Hyponatremia Is this a current diagnosis for this admission?: Yes Plan: Seems to be acute on chronic per patient's history. Not having much po intake currently. Recommend to obtain urine osmolarity, urine sodium and urine creatinine. I will add on serum osmolarity to her initial labs. Consult nephrology Monitor BMP frequently if giving hypertonic saline should check in 1 hour following initial bolus. Goal correction of no more than 6mEq/24hrs recommended (4) Lung transplant recipient Is this a current diagnosis for this admission?: Yes Plan: I have asked pharmacy to come and confirm meds. Please follow this up to reconcile medications. Antirejection meds likely will need to be resumed. Coordinate this with transplant team at [facility]. On dexamethasone in place of prednisone given Covid. (5) FARRAH (acute kidney injury) Is this a current diagnosis for this admission?: Yes Plan: Creatinine is quite up today at 1.7 with subsequent hyperkalemia. Consult nephrology. Notably he did get contrast yesterday. Check FENa. Monitor urine outputs closely. (6) Hyperkalemia Is this a current diagnosis for this admission?: Yes Plan: Secondary to FARRAH. Avoid using lactated Ringer's. (7) Anemia Qualifiers: Anemia type: other cause Other causes of anemia: other cause, not classified Qualified Code(s): D64.89 - Other specified anemias Is this a current diagnosis for this admission?: Yes - Plan Summary Summary: I will continue to follow with you. - Time Time Spent with patient: 35 or more minutes Anticipated Discharge Disposition: Tertiary Anticipated Discharge Timeframe: when bed available
[2020-02-20] MEDS: ASCORBIC ACID 500 MG TABLET PO SCH (19:52)
[2020-02-20] MEDS: DEXAMETHASONE SOD PHOS INJ 10 MG/1 ML VIAL IV SCH (19:52)
[2020-02-20] MEDS ORDERED: ZINC SULFATE 220 MG CAPSULE PO SCH (20:00)
[2020-02-20 20:05] LABS: ANION GAP 5 (5-19); BLOOD UREA NITROGEN 32 mg/dL (7-20); CALCIUM 7.9 mg/dL (8.4-10.2); CARBON DIOXIDE 30 mmol/L (22-30); CHLORIDE 88 mmol/L (98-107); GLUCOSE 117 mg/dL (75-110); POTASSIUM 5.4 mmol/L (3.6-5.0)
--- NOTE | 2020-02-21 00:44 | EKG REPORT ---
SEVERITY:- ABNORMAL ECG - SINUS RHYTHM PROBABLE LEFT ATRIAL ABNORMALITY NONSPECIFIC T ABNORMALITIES, ANT-LAT LEADS BORDERLINE ST ELEVATION, INFERIOR LEADS : Confirmed by: Balbir Palafox 21-Feb-2020 00:43:51
[2020-02-21 01:03] LABS: ANION GAP 5 (5-19); BLOOD UREA NITROGEN 33 mg/dL (7-20); CALCIUM 7.4 mg/dL (8.4-10.2); CARBON DIOXIDE 28 mmol/L (22-30); CHLORIDE 97 mmol/L (98-107); GLUCOSE 124 mg/dL (75-110)
[2020-02-21 03:49] LABS: URINE CREATININE 55.3 mg/dL (15-278)
[2020-02-21] MEDS ORDERED: ACETAMINOPHEN 325 MG TABLET PO ONE (04:57)
[2020-02-21 05:26] LABS: BLOOD UREA NITROGEN 35 mg/dL (7-20); CALCIUM 7.4 mg/dL (8.4-10.2); GLUCOSE 129 mg/dL (75-110); POTASSIUM 4.7 mmol/L (3.6-5.0)
[2020-02-21 05:32] LABS: ANION GAP 5 (5-19); CARBON DIOXIDE 27 mmol/L (22-30); CHLORIDE 99 mmol/L (98-107)
[2020-02-21] MEDS ORDERED: DEXTROSE 5%-WATER 1000 ML 1,000 ML IV PRN (07:33)
[2020-02-21] MEDS ORDERED: DESMOPRESSIN ACETATE INJ 4 MCG/1 ML AMPULE IV ONE (08:23)
[2020-02-21] MEDS ORDERED: ALBUTEROL SULFATE 0.042% NEB (1.25 MG/3 ML) AMPUL NEB ONE (08:40)
[2020-02-21] MEDS ORDERED: SENNOSIDES/DOCUSATE 8.6-50 MG 1 EACH TABLET PO PRN (08:40)
[2020-02-21] MEDS ORDERED: VALGANCICLOVIR HCL 450 MG PO SCH (08:45)
[2020-02-21] MEDS ORDERED: CHOLECALCIFEROL (D3) 1,000 UNIT (25 MCG) TABLET PO SCH (10:00)
[2020-02-21] MEDS: ALBUTEROL SULFATE HFA (90 MCG/PUFF) 8 GM MDI IH SCH ×3 (10:00→17:17)
[2020-02-21] MEDS ORDERED: FOLIC ACID 1 MG TABLET PO SCH (10:00)
[2020-02-21] MEDS: ASCORBIC ACID 500 MG TABLET PO SCH ×2 (10:11→17:17)
[2020-02-21 12:31] LABS: BLOOD UREA NITROGEN 36 mg/dL (7-20); CALCIUM 7.6 mg/dL (8.4-10.2); CARBON DIOXIDE 27 mmol/L (22-30); CHLORIDE 94 mmol/L (98-107); GLUCOSE 172 mg/dL (75-110); POTASSIUM 3.9 mmol/L (3.6-5.0)
[2020-02-21 12:38] LABS: ANION GAP 5 (5-19)
[2020-02-21] MEDS ORDERED: REMDESIVIR 200 MG in NORMAL SALINE 250 ML IV ONE (13:00)
[2020-02-21] MEDS ORDERED: ACETAMINOPHEN 325 MG TABLET PO PRN (13:20)
[2020-02-21] MEDS ORDERED: GUAIFENESIN SYRP 200 MG/10 ML UDC PO PRN (14:46)
[2020-02-21] MEDS ORDERED: ONDANSETRON HCL INJ/PF 4 MG/2 ML SDV IV PRN (14:47)
--- NOTE | 2020-02-21 15:08 | PDOC PROGRESS REPORT ---
Subjective Date:: 02/21/20 Subjective:: Patient feels quite tired today. She is still having quite a bit of coughing. S he was taking her own medications this morning from her pill tray at around 8am. We will provide her medications instead now that pharmacy has confirmed her meds so we know what is being given and so as not to double up on any meds. I have done her med rec. Reason For Visit: COUGH,CONGESTION,FEVER Physical Exam Vital Signs: Temp Pulse Resp BP Pulse Ox 97.7 F 108 H 25 H 102/90 H 94 02/21/20 09:01 02/19/20 15:08 02/21/20 09:01 02/21/20 09:01 02/21/20 09:01 Intake & Output 02/20/20 02/21/20 02/22/20 06:59 06:59 06:59 Intake Total 1500 660 Balance 1500 660 Weight 50.5 kg General appearance: PRESENT: no acute distress, cooperative Head exam: PRESENT: normocephalic Neck exam: ABSENT: JVD Respiratory exam: PRESENT: symmetrical, unlabored, wheezes. ABSENT: accessory muscle use, retraction, tachypnea Cardiovascular exam: PRESENT: RRR, +S1, +S2. ABSENT: tachycardia GI/Abdominal exam: PRESENT: soft. ABSENT: rebound, rigid, tenderness Extremities exam: ABSENT: calf tenderness, pedal edema Neurological exam: PRESENT: alert, awake, oriented to person, oriented to place, oriented to time, oriented to situation Psychiatric exam: ABSENT: agitated, anxious Focused psych exam: ABSENT: pressured speech Results Laboratory Results: 02/20/20 15:28 02/21/20 11:56 02/20/20 02/20/20 02/20/20 15:28 15:28 15:28 WBC 2.0 L RBC 2.51 L Hgb 9.5 L Hct 26.2 L MCV 105 H MCH 37.9 H MCHC 36.3 H RDW 17.7 H Plt Count 269 Seg Neutrophils % Not Reportable Sodium 118.9 L* Potassium 5.7 H D Chloride 85 L Carbon Dioxide 32 H Anion Gap 2 L BUN 34 H Creatinine 1.75 H Est GFR ( Amer) 36 L Glucose 88 Lactic Acid 1.0 Calcium 8.0 L Ferritin Total Bilirubin 0.5 AST 27 Alkaline Phosphatase 45 Total Protein 4.9 L Albumin 2.6 L Urine Osmolality 02/20/20 02/21/20 02/21/20 19:24 00:00 02:53 WBC RBC Hgb Hct MCV MCH MCHC RDW Plt Count Seg Neutrophils % Sodium 122.7 L 130.3 L Potassium 5.4 H 5.0 Chloride 88 L 97 L Carbon Dioxide 30 28 Anion Gap 5 5 BUN 32 H 33 H Creatinine 1.53 H 1.34 H Est GFR ( Amer) 42 L 48 L Glucose 117 H 124 H Lactic Acid Calcium 7.9 L 7.4 L Ferritin Total Bilirubin AST Alkaline Phosphatase Total Protein Albumin Urine Osmolality 352 02/21/20 02/21/20 04:10 11:56 WBC RBC Hgb Hct MCV MCH MCHC RDW Plt Count Seg Neutrophils % Sodium 131.2 L 125.4 L Potassium 4.7 3.9 Chloride 99 94 L Carbon Dioxide 27 27 Anion Gap 5 5 BUN 35 H 36 H Creatinine 1.26 H 1.08 Est GFR ( Amer) 52 L > 60 Glucose 129 H 172 H Lactic Acid Calcium 7.4 L 7.6 L Ferritin 1710.00 H Total Bilirubin AST Alkaline Phosphatase Total Protein Albumin Urine Osmolality 02/19/20 02/20/20 21:46 19:24 Troponin I 0.013 0.017 NT-Pro-B Natriuret Pep 837 H Impressions: Chest/Abdomen CTA 02/19/20 16:17 IMPRESSION: 1. No CT evidence for pulmonary embolism. 2. Several mild groundglass densities in the right lung, suspicious for COVID-19 pneumonia, in the setting of COVID exposure. Chest X-Ray 02/19/20 22:39 IMPRESSION: 1. No acute infiltrates 2. Port-A-Cath Assessment and Plan - Diagnosis (1) Pneumonia due to COVID-19 virus Is this a current diagnosis for this admission?: Yes Plan: CTA shows no evidence of pulmonary embolism. D-dimer is low. Continue dexamethasone 6 mg daily given severe disease. S/p ivermectin x1 Start Remdesivir now hyperkalemia has resolved Vitamin, zinc on backorder Antiemetics, guaifenesin DVT prophylaxis - she states that she is on eliquis at home which will be resumed. Awaiting transfer to [facility] (2) Acute respiratory failure with hypoxia Is this a current diagnosis for this admission?: Yes Plan: Secondary to COVID-19 pneumonia. Was on 6L this morning. We will try to keep saturation above 90%. (3) Hyponatremia Is this a current diagnosis for this admission?: Yes Plan: Seems to be acute on chronic per patient's history. Not having much po intake currently. Urine studies obtained after hypertonic saline Patient's 500cc bag of Hypertonic saline was empty this morning hanging at bedside which means patient likely received received the entire 500cc as opposed to 50cc that was ordered. That is why patient's sodium overcorrected to 131. Administered a dose of 1mcg of DDAVP and started D5W this morning. Repeat BMP at noon shows Na is now at the 24hr goal of 125 from 119. D/cd D5W. Leave off fluids. Serial BMPs - next at 4pm Nephrology on board to help with management. Goal correction of no more than 6mEq/24hrs recommended (4) Lung transplant recipient Is this a current diagnosis for this admission?: Yes Plan: Resumed Tacrolimus. On dexamethasone in place of prednisone given Covid. (5) FARRAH (acute kidney injury) Is this a current diagnosis for this admission?: Yes Plan: Improving (6) Hyperkalemia Is this a current diagnosis for this admission?: Yes Plan: Secondary to FARRAH. Resolved. Avoid using lactated Ringer's. (7) Anemia Qualifiers: Anemia type: other cause Other causes of anemia: other cause, not classified Qualified Code(s): D64.89 - Other specified anemias Is this a current diagnosis for this admission?: Yes - Plan Summary Summary: Awaiting transfer to [facility]. We will continue to follow with you. - Time Anticipated Discharge Disposition: Tertiary Anticipated Discharge Timeframe: when bed available
[2020-02-21] MEDS ORDERED: PANTOPRAZOLE SODIUM 40 MG TABLET.DR PO SCH (16:00)
[2020-02-21] MEDS: DEXAMETHASONE SOD PHOS INJ 10 MG/1 ML VIAL IV SCH (17:17)
[2020-02-21] MEDS ORDERED: APIXABAN 5 MG TABLET PO SCH (18:00)
[2020-02-21] MEDS ORDERED: TACROLIMUS ANHYDROUS 0.5 MG CAPSULE PO SCH (19:00)
[2020-02-21 20:49] VITALS: BP 117/87
--- NOTE | 2020-02-21 21:56 | PDOC CONSULTATION ---
Consultation Consult Date: 02/21/20 Provider Consulted: BRIELLE ZAMAN Consult reason:: Hyponatremia, FARRAH History of Present Illness Admission Date/PCP: SADIA FORTUNE MD History of Present Illness: TRESSA LOPEZ is a 60 year old female with history of interstitial lung disease status post lung transplant on August 2019, rheumatoid arthritis, Crohn's disease, and history of chronic hyponatremia who presented to the ED with complaints of 2 days of shortness of breath, nausea, vomiting and fever. She was found to be positive for COVID-19. She also had CTA upon admission which shows no evidence of acute pulmonary embolism. Her chest x-ray did not really show any acute infiltrates. She was then started on treatment for COVID-19. Patient also presented with a sodium of 123.6. Based from previous records her sodium level since December 2019 range anywhere between 121-126. Patient was given lactated Ringer's of around 1.5 L and yesterday repeat sodium level went down to 118.9 in the afternoon. I was then called by ED provider, Dr. Hurst last night for recommendations regarding the patient's sodium level. I recommended that the patient being given 50 mL of 3% hypertonic saline and repeat her BMP after 4 hours. Patient also had hyperkalemia with potassium of 5.[address] Hurst to just monitor on the next blood draw. This morning our hospitalist, Dr. Berger called me because the patient sodium level has gone up to 131.2. Due to this overcorrection we agreed to give the patient a dose of DDAVP and to start the patient on D5 water and to closely monitor the patient's sodium level. Later on Dr. Berger informed me that when he went to the patient's room this morning the bag of 500 mL of hypertonic saline was empty and most likely was given to the patient throughout the night instead of just 50 mL which I recommended yesterday. When I saw the patient she was lying down comfortably in bed with occasional coughing. She was awake and alert and just feeling tired but otherwise did not have any other complaints nor any neurologic symptoms. Initial work-up for the sodium showed urine osmolality of 352, urine sodium of 25 and urine creatinine of 55.3. Serum osmolality was ordered. The patient also had an acute elevation of her creatinine. Upon presentation on February 18 her creatinine was 1.15 with EGFR 48. Review of records for the last 3 months at least showed that her creatinine ranged anywhere between 1.07-1.22. Patient received contrast from the CTA that was done upon presentation. Yesterday her creatinine has gone up to 1.75 with a BUN of 34. This morning she had a BUN of 35 and creatinine of 1.26. Her initial potassium of 5.7 has now decreased to 4.7. Patient's blood pressure has been on the low side since presentation ranging anywhere between 70 to 90s over 50s to 60s. Today her blood pressure is somewhat better. Urine output is not being monitored in the ED. Past Medical History Cardiac Medical History: Reports: Pulmonary Embolism Pulmonary Medical History: Reports: Chronic Obstructive Pulmonary Disease (COPD) - ILD lung disease, Pneumonia, Other - Interstitial lung disease Neurological Medical History: Reports: Seizures - 2005 Renal/ Medical History: Reports: Hyponatremia GI Medical History: Reports: Crohn's Disease Musculoskeltal Medical History: Reports: Arthritis - rheumatoid, Rheumatoid Arthritis Infectious Medical History: Reports: Methicillin-resist Staph Aureus Hematology Medical History: Reports Anemia Past Surgical History Past Surgical History: Reports: Cholecystectomy, Hysterectomy, Other - Lung transplant on August 2019 Social History Information Source: Patient, [facility] Records Lives with: Family Smoking Status: Former Smoker Electronic Cigarette use?: No Frequency of Alcohol Use: None Hx Recreational Drug Use: No Hx Prescription Drug Abuse: No - Advance Directive Resuscitation Status: Full Code Family History Family History: Arthritis, CAD, Hyperlipidemia, Hypertension, Malignancy Parental Family History Reviewed: Yes Children Family History Reviewed: Yes Sibling(s) Family History Reviewed.: Yes Medication/Allergy Home Medications: Cyclobenzaprine HCl [Flexeril 10 mg Tablet] 10 mg PO DAILYP PRN 02/20/20 Escitalopram Oxalate [Lexapro 10 mg Tablet] 10 mg PO DAILY 02/20/20 Fluconazole 200 mg PO 2100 02/20/20 Fluticasone Propionate [Flonase Nasal [place] 50 Mcg/[place] 16 gm] 2 spray NASL QHS 02/20/20 Folic Acid [Folvite 1 mg Tablet] 1 mg PO DAILY 02/20/20 Gabapentin [Neurontin 300 mg Capsule] 300 mg PO Q12 02/20/20 Magnesium Oxide/Magnesium [jn-Aljt-Jegdowq Tablet] 532 mg PO 1200,1800 02/20/20 Pantoprazole Sodium [Protonix [address] Tablet] 40 mg PO BID 02/20/20 Prednisone [Deltasone 10 mg Tablet] 10 mg PO DAILY 02/20/20 Sennosides/Docusate 8.6-50 mg [Senna Plus Tablet] 2 tab PO BIDP PRN 02/20/20 Tacrolimus Anhydrous [Prograf 0.5 mg Capsule] 0.5 mg PO Q12 02/20/20 Valganciclovir HCl 450 mg PO Q2D 02/20/20 Allergies/Adverse Reactions: amoxicillin trihydrate [From Augmentin] Allergy (Unknown, Verified 02/21/20 15:30) Potassium Clavulanate * [From Augmentin] Allergy (Unknown, Verified 02/21/20 15:30) Sulfa (Sulfonamide Antibiotics) Allergy (Unknown, Verified 02/21/20 15:30) Review of Systems All systems: reviewed and no additional remarkable complaints except as stated Review of Systems: Constitutional: ABSENT: chills, headache(s), weight gain, weight loss; admits fever, fatigue and generalized weakness Eyes: ABSENT: visual disturbances Ears: ABSENT: hearing changes Cardiovascular: ABSENT: chest pain, dyspnea on exertion, edema, orthropnea, palpitations Respiratory: ABSENT: Hemoptysis; admits cough and shortness of breath Gastrointestinal: ABSENT: abdominal pain, constipation, diarrhea, hematemesis, hematochezia; admits nausea, and vomiting Genitourinary: ABSENT: dysuria, hematuria Musculoskeletal: ABSENT: joint swelling Integumentary: ABSENT: rash, wounds Neurological: ABSENT: abnormal gait, abnormal speech, confusion, dizziness, focal weakness, numbness, syncope Psychiatric: ABSENT: anxiety, depression Endocrine: ABSENT: cold intolerance, heat intolerance, polydipsia, polyuria Hematologic/Lymphatic: ABSENT: easy bleeding, easy bruising, lymphadenopathy Physical Exam Vital Signs: Temp Pulse Resp BP Pulse Ox 97.7 F 108 H 25 H 102/90 H 94 02/21/20 09:01 02/19/20 15:08 02/21/20 09:01 02/21/20 09:01 02/21/20 09:01 Intake & Output 02/20/20 02/21/20 02/22/20 06:59 06:59 06:59 Intake Total 1500 Balance 1500 Weight 50.5 kg Exam: General appearance: No acute distress, cooperative, well-developed, well- nourished Head exam: PRESENT: atraumatic, normocephalic Eye exam: PRESENT: Conjunctiva pale, EOMI, PERRLA. ABSENT: conjunctival injection, scleral icterus Mouth exam: PRESENT: moist, neck supple, tongue midline Neck exam: PRESENT: full ROM. ABSENT: carotid bruit, JVD, lymphadenopathy, thyromegaly Respiratory exam: PRESENT: Diminished to auscultation bilaterally. ABSENT: rales, rhonchi, stridor, wheezes Cardiovascular exam: PRESENT: RRR, +S1, +S2. ABSENT: systolic murmur Pulses: PRESENT: normal radial pulses, normal dorsalis pedis pulses GI/Abdominal exam: PRESENT: normal bowel sounds, soft. ABSENT: guarding, mass, tenderness Rectal exam: Deferred Extremities exam: PRESENT: full ROM. ABSENT: calf tenderness, pedal edema Musculoskeletal: PRESENT: full ROM. ABSENT: deformity Neurological exam: PRESENT: alert, Awake, Oriented to person, Oriented to place, Oriented to time, reflexes normal, CN II-XII grossly intact. ABSENT: motor sensory deficit Psychiatric exam: PRESENT: appropriate affect, normal mood. ABSENT: homicidal ideation, suicidal ideation Skin exam: PRESENT: intact, dry, warm. ABSENT: rash Results Laboratory Results: 02/20/20 15:28 02/20/20 02/20/20 02/20/20 15:28 15:28 15:28 WBC 2.0 L RBC 2.51 L Hgb 9.5 L Hct 26.2 L MCV 105 H MCH 37.9 H MCHC 36.3 H RDW 17.7 H Plt Count 269 Seg Neutrophils % Not Reportable Sodium 118.9 L* Potassium 5.7 H D Chloride 85 L Carbon Dioxide 32 H Anion Gap 2 L BUN 34 H Creatinine 1.75 H Est GFR ( Amer) 36 L Glucose 88 Lactic Acid 1.0 Calcium 8.0 L Ferritin Total Bilirubin 0.5 AST 27 Alkaline Phosphatase 45 Total Protein 4.9 L Albumin 2.6 L Urine Osmolality 02/20/20 02/21/20 02/21/20 19:24 00:00 02:53 WBC RBC Hgb Hct MCV MCH MCHC RDW Plt Count Seg Neutrophils % Sodium 122.7 L 130.3 L Potassium 5.4 H 5.0 Chloride 88 L 97 L Carbon Dioxide 30 28 Anion Gap 5 5 BUN 32 H 33 H Creatinine 1.53 H 1.34 H Est GFR ( Amer) 42 L 48 L Glucose 117 H 124 H Lactic Acid Calcium 7.9 L 7.4 L Ferritin Total Bilirubin AST Alkaline Phosphatase Total Protein Albumin Urine Osmolality 352 02/21/20 04:10 WBC RBC Hgb Hct MCV MCH MCHC RDW Plt Count Seg Neutrophils % Sodium 131.2 L Potassium 4.7 Chloride 99 Carbon Dioxide 27 Anion Gap 5 BUN 35 H Creatinine 1.26 H Est GFR ( Amer) 52 L Glucose 129 H Lactic Acid Calcium 7.4 L Ferritin 1710.00 H Total Bilirubin AST Alkaline Phosphatase Total Protein Albumin Urine Osmolality 02/19/20 02/20/20 21:46 19:24 Troponin I 0.013 0.017 NT-Pro-B Natriuret Pep 837 H Impressions: Chest/Abdomen CTA 02/19/20 16:17 IMPRESSION: 1. No CT evidence for pulmonary embolism. 2. Several mild groundglass densities in the right lung, suspicious for COVID-19 pneumonia, in the setting of COVID exposure. Chest X-Ray 02/19/20 22:39 IMPRESSION: 1. No acute infiltrates 2. Port-A-Cath Assessment & Plan - Diagnosis (1) Hyponatremia Is this a current diagnosis for this admission?: Yes Plan: Acute exacerbation on top of chronic hyponatremia. The acute worsening of hyponatremia could be due to hypovolemia due to poor oral intake due to acute illness. The underlying chronic hyponatremia could be secondary to baseline SIADH but needs to be further work-up. If the patient stays here longer we might need to check her thyroid functions, cortisol and uric acid. Cortisol level will not be very reliable due to the patient being on steroids though. Baseline sodium usually ranges between 121-126 which went down to 118 yesterday. Unfortunately the patient was given the 500 mL of hypertonic saline while she should only have have been given 50 mL last night as I recommended. This resulted to acute overcorrection of hyponatremia with risk of osmotic demyelination syndrome. Currently the patient does not have any neurologic symptoms showing ODS. As discussed with Dr. Berger earlier this morning we are to give the patient a dose of DDAVP and D5 water with subsequent close monitoring of the patient's sodium level serially. (2) FARRAH (acute kidney injury) Is this a current diagnosis for this admission?: Yes Plan: Baseline creatinine usually around 1.07-1.22. Acute worsening of patient's creatinine from admission of 1.15-1.75 is most likely secondary to prerenal factors including contrast and hypovolemia. Presumably nonoliguric, kidney function is slowly improving at this time. Continue to monitor kidney function and avoid nephrotoxic medications. Maintain euvolemia. No need of any renal replacement therapy. (3) Pneumonia due to COVID-19 virus Is this a current diagnosis for this admission?: Yes Plan: Patient is being given IV Decadron, IV remdesivir and a dose of ivermectin. Management per hospitalist service. (4) Hyperkalemia Is this a current diagnosis for this admission?: Yes Plan: Currently resolved. (5) Anemia Qualifiers: Anemia type: other cause Other causes of anemia: other cause, not classified Qualified Code(s): D64.89 - Other specified anemias Is this a current diagnosis for this admission?: Yes (6) Lung transplant recipient Is this a current diagnosis for this admission?: Yes Plan: Immunosuppression is being continued although if the patient's COVID-19 infection worsen consideration of either decreasing the dose or holding immunosuppression is a treatment option. Due to the patient being on a recent lung transplant with COVID-19 infection, patient is being transferred to [place]. - Notes Notes: Thank you for this consultation. Discussed with Dr. Berger this morning and Dr. Hurst last night.
[2020-02-21] MEDS ORDERED: FLUCONAZOLE 100 MG TABLET PO SCH (22:00)
[2020-02-21] MEDS ORDERED: GABAPENTIN 300 MG CAPSULE PO SCH (22:00)
[2020-02-21] MEDS ORDERED: FLUTICASONE NASAL SPRAY 50 MCG/SPRY 120 SPRAY/16 GM NASL SCH (22:00)
[2020-02-22] MEDS ORDERED: ESCITALOPRAM OXALATE 10 MG TABLET PO SCH (10:00)
[2020-02-22] MEDS ORDERED: REMDESIVIR 100 MG in NORMAL SALINE 250 ML IV SCH (10:00)
[2020-02-23 12:27] LABS: PATH REVIEW PATHOLOGIST REVIEWED
== END 2020-02-21 20:49 | disposition short-term general hospital (02) ==
LOC: ER 14:37
DX: U07.1 COVID-19 (principal); J12.82 Pneumonia due to coronavirus disease 2019; J96.01 Acute respiratory failure with hypoxia; E87.1 Hypo-osmolality and hyponatremia; I95.9 Hypotension, unspecified; D64.9 Anemia, unspecified; R11.2 Nausea with vomiting, unspecified; E87.5 Hyperkalemia; N17.9 Acute kidney failure, unspecified; Z94.2 Lung transplant status; Z86.711 Personal history of pulmonary embolism; Z79.01 Long term (current) use of anticoagulants; Z79.899 Other long term (current) drug therapy; Z79.52 Long term (current) use of systemic steroids; Z87.891 Personal history of nicotine dependence; Z88.0 Allergy status to penicillin; Z88.2 Allergy status to sulfonamides
CPT/HCPCS: 93005 ×2; 96376; 94640; 99285; 96361; 96375 ×2; 96365; 96367; 36415; 82728; 83605; 83615; 82570; 83935; 84300; 85025; 85610; 85730; 0202U ×23; 86140; 80048; 80053; 84484; 85379; 83880; 71045; 71275; 93010 ×2; A9270 ×11; J3010; J3490 ×2; J2405; J7060; J7050; J7120; J2597; J1100 ×2; J2185